=== PATIENT | male | born 1960 | race Caucasian/White ===

== ENCOUNTER 2018-06-06 09:58 | Inpatient (IN) | payer OTHER, BC ==
[2018-06-06] MEDS: ASPIRIN 325 MG TAB PO (10:41)
[2018-06-06] MEDS: ONDANSETRON 4 MG INJ IV (10:41)
[2018-06-06] MEDS: morphine 4 MG/ML VIAL IV (10:41)
[2018-06-06] MEDS: NITROGLYCERIN 2% 1 GM OINT PKT TD (10:43)
[2018-06-06 10:51] LABS: ADD MAN DIFF? NO
[2018-06-06 10:55] LABS: BASOPHIL # 0.1 10^3/ul (0.0-0.1); BASOPHILS % 0.4 % (0.0-2.0); EOSINOPHILS # 0.2 10^3/ul (0.0-0.5); EOSINOPHILS % 1.5 % (0.0-7.0); HEMATOCRIT 51.5 % (42.0-52.0); LYMPHOCYTES # 1.8 10^3/ul (0.8-2.9); LYMPHOCYTES % 15.9 % (15.0-51.0); MEAN CORPUSCULAR HEMOGLOBIN 29.7 pg (29.0-33.0); MEAN PLATELET VOLUME 8.7 fl (7.4-10.4); MONOCYTE # 0.8 10^3/ul (0.3-0.9); NEUTROPHIL # 8.5 10^3/ul (1.6-7.5); NEUTROPHILS % 74.8 % (39.0-77.0); PLATELET COUNT 286 10^3/UL (140-415); RED BLOOD COUNT 5.72 10^6/ul (4.70-6.10); RED CELL DISTRIBUTION WIDTH 14.4 % (11.5-14.5)
[2018-06-06 10:55] LABS: WHITE BLOOD COUNT 11.4 10^3/ul (4.8-10.8)
[2018-06-06 11:21] LABS: ANION GAP 14 (5-13); BLOOD UREA NITROGEN 20 mg/dl (7-20); CALCIUM 10.6 mg/dl (8.4-10.2); CARBON DIOXIDE 25 mmol/L (21-31); CHLORIDE 101 mmol/L (97-110); CREATININE 0.96 mg/dl (0.61-1.24); Estimated GFR > 60 mL/min (>60); GLUCOSE 180 mg/dl (70-220); POTASSIUM 4.1 mmol/L (3.5-5.1); SODIUM 140 mmol/L (135-144)
[2018-06-06 11:33] LABS: TROPONIN-I 0.023 ng/ml (0.000-0.120)
[2018-06-06 12:50] LABS: INR 0.79; PROTIME 11.1 Sec (11.9-14.9); PT RATIO 0.9
[2018-06-06] MEDS: HEPARIN 1000 UNITS/ML 10 ML INJ IV (13:17)
[2018-06-06] MEDS: HEPARIN 25000 UNITS/250 ML 250 ML IV (13:20)
[2018-06-06] MEDS: NITROGLYCERIN 50 MG/D5W (PMX) 250 ML IV (13:21)
[2018-06-06] MEDS ORDERED: DEXTROSE 5%-0.45% NACL 1,000 ML IV (14:46)
[2018-06-06] MEDS ORDERED: VERAPAMIL 5 MG INJ (14:55)
[2018-06-06] MEDS ORDERED: LIDOCAINE 1% (MDV) 20 ML INJ (14:55)
[2018-06-06] MEDS ORDERED: FENTAnyl 50 MCG/ML VIAL (14:55)
[2018-06-06] MEDS ORDERED: MIDAZOLAM 1 MG/ML 2 ML INJ (14:55)
[2018-06-06] MEDS ORDERED: IODIXANOL LOCM 100 ML BTL (14:55)
[2018-06-06] MEDS ORDERED: NITROGLYCERIN (SL) 0.4 MG TAB SL (15:00)
[2018-06-06] MEDS ORDERED: ONDANSETRON 4 MG INJ IV (15:00)
[2018-06-06] MEDS ORDERED: ACETAMINOPHEN 650MG/20.3ML CUP PO (15:00)
[2018-06-06] MEDS ORDERED: morphine 2 MG INJ IV (15:00)
[2018-06-06] MEDS ORDERED: PRASUGREL HYDROCHLORIDE 10 MG TABLET PO (15:20)
[2018-06-06] MEDS ORDERED: NITROGLYCERIN (IC) 100 MCG/ML INJ (15:20)
[2018-06-06] MEDS ORDERED: DIPHENHYDRAMINE 50 MG INJ (15:29)
[2018-06-06 15:52] LABS: CREATINE KINASE 1035 IU/L (23-200)
[2018-06-06] MEDS ORDERED: BIVALIRUDIN 250MG /NS 50 ML 100 ML IVPB (15:59)
[2018-06-06 16:05] LABS: CK INDEX 6.7
[2018-06-06] MEDS ORDERED: NITROGLYCERIN 50 MG/D5W (PMX) 250 ML IV (16:30)
[2018-06-06] MEDS ORDERED: ACETAMINOPHEN 325 MG TAB PO (16:30)
[2018-06-06] MEDS ORDERED: BIVALIRUDIN 250 MG in SOD CHLORIDE 0.9% 500 ML IV (16:30)
[2018-06-06 16:52] LABS: HEMOGLOBIN A1C 6.5 % (0-5.9)
[2018-06-06 16:57] LABS: CHOLESTEROL 186 mg/dl (100-200)
[2018-06-06 16:57] LABS: CHOL/HDL RATIO 3.8 RATIO; HDL CHOLESTEROL 48 mg/dl (28-71); LDL CHOLESTEROL,CALCULATED 126 mg/dl; TRIGLYCERIDES 58 mg/dl (0-149)
[2018-06-06] MEDS: PANTOPRAZOLE (EC) 40 MG TAB PO (17:23)
[2018-06-06] MEDS: SERTRALINE 100 MG TAB PO (17:24)
[2018-06-06] MEDS: BIVALIRUDIN 250MG /NS 50 ML 50 ML IVPB (17:25)
[2018-06-06] MEDS: SOD CHLORIDE 0.9% 1,000 ML IV (17:25)
[2018-06-06] MEDS: OXYCODONE/ACETAMINOPHEN (5/325) TAB PO (20:12)
[2018-06-06] MEDS ORDERED: ATORVASTATIN 10 MG TAB PO (21:00)
[2018-06-06] MEDS: ATORVASTATIN 80 MG TAB PO (21:06)
[2018-06-06] MEDS: ZOLPIDEM 5 MG TAB PO (21:06)
[2018-06-06] MEDS: morphine 2 MG INJ IV (21:21)
[2018-06-06 22:55] LABS: CREATINE KINASE 1391 IU/L (23-200)
[2018-06-06 23:06] LABS: CK INDEX 6.7
[2018-06-07 05:27] LABS: ADD MAN DIFF? NO
[2018-06-07 05:35] LABS: WHITE BLOOD COUNT 10.5 10^3/ul (4.8-10.8)
[2018-06-07 05:35] LABS: BASOPHIL # 0.1 10^3/ul (0.0-0.1); BASOPHILS % 0.5 % (0.0-2.0); EOSINOPHILS # 0.1 10^3/ul (0.0-0.5); HEMATOCRIT 42.5 % (42.0-52.0); HEMOGLOBIN 14.3 g/dl (14.0-18.0); LYMPHOCYTES # 1.8 10^3/ul (0.8-2.9); LYMPHOCYTES % 17.5 % (15.0-51.0); MEAN CORPUSCULAR HEMOGLOBIN 30.4 pg (29.0-33.0); MEAN CORPUSCULAR HGB CONC 33.6 g/dl (32.0-37.0); MEAN CORPUSCULAR VOLUME 90.2 fl (82.0-101.0); MEAN PLATELET VOLUME 9.1 fl (7.4-10.4); MONOCYTE # 1.1 10^3/ul (0.3-0.9); MONOCYTES % 10.1 % (0.0-11.0); NEUTROPHIL # 7.4 10^3/ul (1.6-7.5); NEUTROPHILS % 70.6 % (39.0-77.0); PLATELET COUNT 245 10^3/UL (140-415); RED BLOOD COUNT 4.71 10^6/ul (4.70-6.10); RED CELL DISTRIBUTION WIDTH 14.4 % (11.5-14.5)
[2018-06-07 05:52] LABS: ANION GAP 4 (5-13); BLOOD UREA NITROGEN 18 mg/dl (7-20); CARBON DIOXIDE 25 mmol/L (21-31); CHLORIDE 108 mmol/L (97-110); CHOL/HDL RATIO 5.1 RATIO; CHOLESTEROL 184 mg/dl (100-200); CREATINE KINASE 1275 IU/L (23-200); CREATININE 0.84 mg/dl (0.61-1.24); Estimated GFR > 60 mL/min (>60); GLUCOSE 127 mg/dl (70-220); HDL CHOLESTEROL 36 mg/dl (28-71); LDL CHOLESTEROL,CALCULATED 107 mg/dl; POTASSIUM 4.2 mmol/L (3.5-5.1); SODIUM 137 mmol/L (135-144); TRIGLYCERIDES 203 mg/dl (0-149)
[2018-06-07 06:02] LABS: CK INDEX 5.3
[2018-06-07] MEDS: PRASUGREL HYDROCHLORIDE 10 MG TABLET PO (08:35)
[2018-06-07] MEDS: ASPIRIN (EC) 81 MG TAB PO (08:35)
[2018-06-07] MEDS: DEXTROSE 5%-0.45% NACL 1,000 ML IV (08:37)
[2018-06-07] MEDS: PANTOPRAZOLE (EC) 40 MG TAB PO (08:43)
[2018-06-07] MEDS: SERTRALINE 100 MG TAB PO (08:44)
[2018-06-07] MEDS: ATORVASTATIN 80 MG TAB PO (08:44)
[2018-06-07] MEDS ORDERED: VERAPAMIL 5 MG INJ (12:53)
[2018-06-07] MEDS ORDERED: DIPHENHYDRAMINE 50 MG INJ (12:53)
[2018-06-07] MEDS ORDERED: MIDAZOLAM 1 MG/ML 2 ML INJ (12:53)
[2018-06-07] MEDS ORDERED: FENTAnyl 50 MCG/ML VIAL ×2 (12:53→13:23)
[2018-06-07] MEDS ORDERED: LIDOCAINE 1% (MDV) 20 ML INJ (12:53)
[2018-06-07] MEDS ORDERED: IODIXANOL LOCM 100 ML BTL (12:53)
[2018-06-07] MEDS ORDERED: NITROGLYCERIN (IC) 100 MCG/ML INJ ×2 (12:53→13:15)
[2018-06-07] MEDS: SOD CHLORIDE 0.9% 1,000 ML IV (14:04)
[2018-06-07] MEDS: NICOTINE (14 MG/24 HR) PATCH TRANSDERM (15:04)
[2018-06-07] MEDS ORDERED: ATROPINE 1 MG/10 ML SYRINGE (15:11)
[2018-06-07] MEDS ORDERED: BIVALIRUDIN 250MG /NS 50 ML 50 ML IVPB (15:19)
[2018-06-07] MEDS: morphine 2 MG INJ IV (15:24)
[2018-06-07] MEDS: OXYCODONE/ACETAMINOPHEN (5/325) TAB PO (17:31)
[2018-06-07] MEDS: ZOLPIDEM 5 MG TAB PO (23:04)
[2018-06-08] MEDS: OXYCODONE/ACETAMINOPHEN (5/325) TAB PO ×2 (01:23→08:06)
[2018-06-08 05:29] LABS: ADD MAN DIFF? NO
[2018-06-08 05:34] LABS: WHITE BLOOD COUNT 8.3 10^3/ul (4.8-10.8)
[2018-06-08 05:34] LABS: BASOPHILS % 0.5 % (0.0-2.0); EOSINOPHILS # 0.1 10^3/ul (0.0-0.5); EOSINOPHILS % 1.3 % (0.0-7.0); HEMATOCRIT 39.2 % (42.0-52.0); LYMPHOCYTES # 1.8 10^3/ul (0.8-2.9); LYMPHOCYTES % 21.7 % (15.0-51.0); MEAN CORPUSCULAR HGB CONC 33.2 g/dl (32.0-37.0); MEAN CORPUSCULAR VOLUME 90.5 fl (82.0-101.0); MEAN PLATELET VOLUME 9.1 fl (7.4-10.4); MONOCYTE # 0.9 10^3/ul (0.3-0.9); MONOCYTES % 10.7 % (0.0-11.0); NEUTROPHIL # 5.4 10^3/ul (1.6-7.5); NEUTROPHILS % 65.4 % (39.0-77.0); PLATELET COUNT 221 10^3/UL (140-415); RED BLOOD COUNT 4.33 10^6/ul (4.70-6.10); RED CELL DISTRIBUTION WIDTH 14.5 % (11.5-14.5)
[2018-06-08 05:45] LABS: CREATINE KINASE 415 IU/L (23-200)
[2018-06-08 05:48] LABS: ALANINE AMINOTRANSFERASE 41 IU/L (13-69); ALBUMIN 3.3 g/dl (3.3-4.9); ALBUMIN/GLOBULIN RATIO 1.65; ALKALINE PHOSPHATASE 60 IU/L (42-121); ANION GAP 5 (5-13); ASPARTATE AMINO TRANSFERASE 68 IU/L (15-46); BILIRUBIN,INDIRECT 0.4 mg/dl (0-1.1); BILIRUBIN,TOTAL 0.4 mg/dl (0.2-1.3); BLOOD UREA NITROGEN 18 mg/dl (7-20); CALCIUM 8.7 mg/dl (8.4-10.2); CARBON DIOXIDE 29 mmol/L (21-31); CHLORIDE 103 mmol/L (97-110); CREATININE 0.86 mg/dl (0.61-1.24); Estimated GFR > 60 mL/min (>60); GLUCOSE 141 mg/dl (70-220); POTASSIUM 4.1 mmol/L (3.5-5.1); SODIUM 137 mmol/L (135-144); TOTAL PROTEIN 5.3 g/dl (6.1-8.1)
[2018-06-08 05:57] LABS: CK INDEX 3.4
[2018-06-08] MEDS: PANTOPRAZOLE (EC) 40 MG TAB PO (08:05)
[2018-06-08] MEDS: ASPIRIN (EC) 81 MG TAB PO (08:05)
[2018-06-08] MEDS: PRASUGREL HYDROCHLORIDE 10 MG TABLET PO (08:06)
[2018-06-08] MEDS: NICOTINE (14 MG/24 HR) PATCH TRANSDERM (08:07)
[2018-06-08] MEDS: SERTRALINE 100 MG TAB PO (08:13)
== END 2018-06-08 10:32 | disposition home or self-care (01) | DRG 247 ==
LOC: E/R 09:58 → REC 13:03 → ICU 16:30
PROC: 027034Z Dilation of Coronary Artery, One Artery with Drug-eluting Intraluminal Device, Percutaneous Approach (ICD-10-PCS; principal; 2018-06-06 14:45)
PROC: 4A023N7 Measurement of Cardiac Sampling and Pressure, Left Heart, Percutaneous Approach (ICD-10-PCS; 2018-06-06 14:45)
PROC: B211YZZ Fluoroscopy of Multiple Coronary Arteries using Other Contrast (ICD-10-PCS; 2018-06-06 14:45)
DX: I21.4 Non-ST elevation (NSTEMI) myocardial infarction (principal); I25.10 Atherosclerotic heart disease of native coronary artery without angina pectoris; E78.5 Hyperlipidemia, unspecified; K21.9 Gastro-esophageal reflux disease without esophagitis; F32.9 Major depressive disorder, single episode, unspecified; E11.8 Type 2 diabetes mellitus with unspecified complications; F17.200 Nicotine dependence, unspecified, uncomplicated
CPT/HCPCS: 36415; 71045; 80048; 80053; 80061; 82550; 82553; 83036; 84484; 85025; 85610; 85730; 87081; 93005; 93306; 93458; 96374; 96375; 99291-25